=== PATIENT | female | born 1980 | race African-American/Black ===

== ENCOUNTER 2016-04-21 00:14 | Emergency (ER) | payer BC ==
[2016-04-21 00:49] VITALS: BP 121/72; PULSE 77; TEMP 97.8; BMI 26.3
--- NOTE | 2016-04-21 00:57 | PDOC ---
History of Present Illness - General History Source: Patient Exam Limitations: No Limitations - History of Present Illness Initial Comments: 04/21/16 01:51 The patient is a 36 year old female, with no significant past medical history, who presents to the emergency department with urinary frequency, dysuria, hematuria and suprapublic pain for the past 6 hours. The patient states that her urine is pink streaked. She reports that she has had urinary tract infections in the past and that her current symptoms feel similar. The patient denies fever, chills, nausea, vomiting or diarrhea. is with her in the ED. LMP: 04/10/2016 Allergies: None reported. Past Surgical History: None reported. Social History: Non smoker. Denies alcohol or drug use. <Hina Parada - Last Filed: 04/21/16 01:51> <Octaviano Guy - Last Filed: 04/21/16 02:03> - General Chief Complaint: Urinary Problem Stated Complaint: URINARY PROBLEM Time Seen by Provider: 04/21/16 00:46 Past History <Hina Parada - Last Filed: 04/21/16 01:51> - Psycho/Social/Smoking Cessation Hx Suicidal Ideation: No Smoking History: Never smoked Have you smoked in the past 12 months: No Information on smoking cessation initiated: No Hx Alcohol Use: No Drug/Substance Use Hx: No <Octaviano Guy - Last Filed: 04/21/16 02:03> - Past Medical History Allergies/Adverse Reactions: Allergies Allergy/AdvReac Type Severity Reaction Status Date / Time No Known Allergies Allergy Verified 04/21/16 00:46 Home Medications: Ambulatory Orders Nitrofurantoin Monohyd/M-Cryst [Macrobid -] 100 mg PO BID #20 capsule 04/21/16 Phenazopyridine HCl [Pyridium] 100 mg PO BID #6 tablet 04/21/16 Review of Systems - Review of Systems Able to Perform ROS?: Yes Comments:: 04/21/16 01:51 CONSTITUTIONAL: No fever, no chills, no fatigue EYES: No visual changes ENT: No ear pain, no sore throat CARDIOVASCULAR: No chest pain, no palpitations RESPIRATORY: No cough, no SOB GI: +Abdominal pain. No nausea, no vomiting, no constipation, no diarrhea GENITOURINARY: +Dysuria, urinary frequency, hematuria MUSKULOSKELETAL: No back pain, no joint pain, no myalgias SKIN: No rash NEURO: No headache <Hina Parada - Last Filed: 04/21/16 01:51> *Physical Exam - Vital Signs Last Vital Signs Temp Pulse Resp BP Pulse Ox 97.8 F 77 20 121/72 100 04/21/16 00:46 04/21/16 00:46 04/21/16 00:46 04/21/16 00:46 04/21/16 00:46 - Physical Exam Comments: 04/21/16 01:35 CONSTITUTIONAL: Well-appearing; well-nourished; in no apparent distress. HEAD: Normocephalic; atraumatic. EYES: PERRL; EOM intact. ENMT: External appears normal; normal oropharynx. NECK: Supple; non-tender; no cervical lymphadenopathy. CARD: Normal S1, S2; no murmurs, rubs, or gallops. RESP: Normal chest excursion with respiration; breath sounds clear and equal bilaterally; no wheezes, rhonchi, or rales. ABD: Mild suprapubic tenderness. Soft, non-distended; no palpable organomegaly, no palpable hernias. EXT: Normal ROM in all four extremities; non-tender to palpation; distal pulses intact. SKIN: Warm, dry, no rash. NEURO: No focal neurological deficiencies. <Hina Parada - Last Filed: 04/21/16 01:51> - Vital Signs Last Vital Signs Temp Pulse Resp BP Pulse Ox 97.8 F 77 20 121/72 100 04/21/16 00:46 04/21/16 00:46 04/21/16 00:46 04/21/16 00:46 04/21/16 00:46 <Octaviano Guy - Last Filed: 04/21/16 02:03> ED Treatment Course - ADDITIONAL ORDERS Additional order review: Laboratory Results 04/21/16 01:05 Urine Color Yellow Urine Appearance Cloudy Urine pH 5.0 Ur Specific [place] 1.027 Urine Protein 2+ H Urine Glucose (UA) Negative Urine Ketones Negative Urine Blood 3+ H Urine Nitrite Negative Urine Bilirubin Negative Urine Urobilinogen Negative Ur Leukocyte Esterase 3+ H Urine HCG, Qual Negative <Hina Parada - Last Filed: 04/21/16 01:51> Medical Decision Making - Medical Decision Making 04/21/16 02:00 Patient is a well-appearing 36-year-old female who presents with signs and symptoms of acute cystitis. Urinalysis reveals numerous RBCs and WBCs per high- power field consistent with hemorrhagic cystitis. Urine cultures been obtained. Will discharge with Macrobid and Pyridium with PMD follow-up. <Octaviano Guy - Last Filed: 04/21/16 02:03> *DC/Admit/Observation/Transfer - Attestations Scribe Attestion: 04/21/16 01:35 Documentation prepared by Hina Parada, acting as medical editor for Octaviano Guy MD. <Hina Parada - Last Filed: 04/21/16 01:51> - Attestations Physician Attestion: 04/21/16 01:59 The documentation was prepared by the scribe under my direct supervision. I have reviewed the documentation which correctly represents the findings, medical decision-making and critical action taken by me. <Octaviano Guy - Last Filed: 04/21/16 02:03> Diagnosis at time of Disposition: Hemorrhagic cystitis - Discharge Dispostion Disposition: HOME Condition at time of disposition: Stable - Referrals Referrals: [facility] [Provider Group] - Patient Instructions Printed Discharge Instructions: Acute Cystitis
[2016-04-21 01:21] LABS: URINE APPEARANCE CLOUDY; URINE BILIRUBIN NEGATIVE (NEGATIVE); URINE COLOR YELLOW; URINE GLUCOSE (UA) NEGATIVE (NEGATIVE); URINE KETONE NEGATIVE (NEGATIVE); URINE NITRITE NEGATIVE (NEGATIVE); URINE UROBILINOGEN NEGATIVE E.U./dl (0.2-1.0)
[2016-04-21 01:27] LABS: URINE BLOOD 3+ (NEGATIVE); URINE LEUK ESTERASE 3+ (NEGATIVE); URINE PROTEIN 2+ (NEGATIVE)
[2016-04-21 01:49] LABS: URINE MUCUS FEW; URINE RBC 1173 /hpf (0-3); URINE WBC 1372 /hpf (3-5)
== END 2016-04-21 02:08 | disposition home or self-care (01) ==
LOC: JER 00:14
DX: N30.81 Other cystitis with hematuria (principal)
CPT/HCPCS: 81003; 81015; 84703; 87086; 87186; 99281-25

== ENCOUNTER 2016-12-18 14:58 | Emergency (ER) | payer BC ==
[2016-12-18 15:02] VITALS: BP 123/80; PULSE 96; TEMP 98.7; BMI 25.7
--- NOTE | 2016-12-18 16:07 | PDOC ---
History of Present Illness - General Chief Complaint: Pain Stated Complaint: CHEST PAIN Time Seen by Provider: 12/18/16 15:56 History Source: Patient Exam Limitations: No Limitations - History of Present Illness Initial Comments: 12/18/16 16:02 36 yr female with c/o "lump in throat" for 3 days after swallowing. denies nvd no fever, neg abd pain. Pt states frequent heartburn after eating certain foods. 12/18/16 16:30 Occurred: reports: other (3-4 days) Severity: reports: mild Modifying Factors: improves with: None Associated Symptoms (Fall): denies symptoms Past History - Past Medical History Allergies/Adverse Reactions: Allergies Allergy/AdvReac Type Severity Reaction Status Date / Time No Known Allergies Allergy Verified 12/18/16 15:02 Home Medications: Ambulatory Orders Ranitidine HCl [Acid Mainframe Consultant] 150 mg PO BID #28 tablet 12/18/16 - Psycho/Social/Smoking Cessation Hx Suicidal Ideation: No Smoking History: Never smoked Have you smoked in the past 12 months: No Information on smoking cessation initiated: No Hx Alcohol Use: No Drug/Substance Use Hx: No Review of Systems - Review of Systems Able to Perform ROS?: Yes Is the patient limited Maltese proficient: No Constitutional: No: Symptoms Reported HEENTM: Yes: See HPI, Difficulty Swallowing *Physical Exam - Vital Signs Last Vital Signs Temp Pulse Resp BP Pulse Ox 98.7 F 96 H 18 123/80 100 12/18/16 14:59 12/18/16 14:59 12/18/16 14:59 12/18/16 14:59 12/18/16 14:59 - Physical Exam General Appearance: Yes: Nourished, Appropriately Dressed HEENT: positive: EOMI, MERY, Normal ENT Inspection, TMs Normal, Pharynx Normal Neck: positive: Supple. negative: Tender, Lymphadenopathy (R), Lymphadenopathy (L) Respiratory/Chest: positive: Lungs Clear, Normal Breath Sounds. negative: Chest Tender Cardiovascular: positive: Regular Rhythm, Regular Rate Medical Decision Making - Medical Decision Making 12/18/16 16:31 cc: painful swallowing neg nvd neg fever or chills neg abd pain will get CXR will give maalox and zantac 12/18/16 16:34 12/18/16 18:09 pt feels better after the meds. pt has no diff swallowing or speaking. CXR is WNL read by results discussed with patient and that pt needs strict follow up with ENT and GI to further evaluate pt agrees and understands the dc plan. pt stable on discharge and understands that the workup is not complete until she follows up with the specialists. 12/18/16 19:01 *DC/Admit/Observation/Transfer Diagnosis at time of Disposition: Difficulty swallowing Qualifiers: Dysphagia type: unspecified Qualified Code(s): R13.10 - Dysphagia, unspecified - Discharge Dispostion Disposition: HOME Condition at time of disposition: Good - Prescriptions Prescriptions: Ranitidine HCl [Acid Mainframe Consultant] 150 mg PO BID #28 tablet - Referrals Referrals: Donovan Romero MD [Staff Physician] - Sadi Ramirez MD [Staff Physician] - - Patient Instructions Additional Instructions: please follow with the sheep farm manager or the ENT for follow up call tomorrow to make appointment start ranitidine as directed return if any worsening symptoms
[2016-12-18] MEDS ORDERED: RANITIDINE HCL 150 MG TABLET (FP) PO ONE (16:12)
[2016-12-18] MEDS ORDERED: MAG HYDROX/AL HYDROX/SIMETH 355 ML ORAL.SUSP PO ONE (16:12)
[2016-12-18] MEDS ORDERED: MAG HYDROX/AL HYDROX/SIMETH 30 ML UNIT-DOSE CUP ONE (16:14)
[2016-12-18] MEDS ORDERED: RANITIDINE HCL 150 MG TABLET (FP) ONE (16:14)
--- NOTE | 2016-12-22 09:51 | EKG ---
Test Reason : Blood Pressure : / mmHG Vent. Rate : 087 BPM Atrial Rate : 087 BPM P-R Int : 160 ms QRS Dur : 086 ms QT Int : 368 ms P-R-T Axes : 049 062 048 degrees QTc Int : 442 ms NORMAL SINUS RHYTHM MINIMAL VOLTAGE CRITERIA FOR LVH, MAY BE NORMAL VARIANT NONSPECIFIC T WAVE ABNORMALITY NO PREVIOUS ECGS AVAILABLE Confirmed by KORY NEWMAN MD ([id number]) on 12/22/2016 9:51:08 AM Referred By: Confirmed By:KORY NEWMAN MD
== END 2016-12-18 19:02 | disposition home or self-care (01) ==
LOC: JERFT 14:58
DX: R13.10 Dysphagia, unspecified (principal)
CPT/HCPCS: 71020-TC; 84703; 93005; 93010; 99281-25

== ENCOUNTER 2017-11-10 23:14 | Emergency (ER) | payer BC ==
[2017-11-10 23:23] VITALS: BP 125/79; PULSE 84; TEMP 98.7; BMI 24.3
--- NOTE | 2017-11-10 23:48 | PDOC ---
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 She additionally notes mild constipation and generalized weakness that worsens while she is at work. She has vomited three times in the past day and notes that even drinking water makes her feel nauseated. She has not taken any medications for her symptoms. Her LMP was in the end of September, she does not use control, and she is sexually active. She had slightly increased vaginal discharge yesterday. She denies headache, neck pain, chest pain, palpitations, SOB, leg pain/swelling, or other symptoms. <Kandy Carson - Last Filed: 11/11/17 02:17> - General Chief Complaint: Nausea/Vomiting Stated Complaint: VOMITING Time Seen by Provider: 11/10/17 23:30 Past History <Rebecca Lockwood - Last Filed: 11/11/17 02:06> - Suicide/Smoking/Psychosocial Hx Smoking History: Never smoked Have you smoked in the past 12 months: No Hx Alcohol Use: No Drug/Substance Use Hx: No <Kandy Carson - Last Filed: 11/11/17 02:17> - Past Medical History Allergies/Adverse Reactions: Allergies Allergy/AdvReac Type Severity Reaction Status Date / Time Penicillins Allergy Severe Hives Verified 11/11/17 00:54 Home Medications: Ambulatory Orders Metoclopramide HCl [Reglan] 10 mg PO TID #14 tablet 11/11/17 Review of Systems - Review of Systems Able to Perform ROS?: Yes Constitutional: Yes: Fever (subjective), Malaise, Weakness. No: Chills, Unexplained wgt Loss HEENTM: No: Nose Congestion, Throat Pain Respiratory: No: Cough, Shortness of Breath Cardiac (ROS): No: Chest Pain, Palpitations ABD/GI: Yes: Constipated, Nausea, Vomiting, Other (lower abdominal pain). No: Diarrhea : No: Burning, Dysuria Musculoskeletal: No: Back Pain, Neck Pain Integumentary: No: Bruising, Rash Neurological: No: Headache, Numbness, Tingling, Weakness, Dizziness Endocrine: No: Unexplained Weight Gain, Unexplained Weight Loss <Kandy Carson - Last Filed: 11/11/17 02:17> *Physical Exam - Vital Signs Last Vital Signs Temp Pulse Resp BP Pulse Ox 98.7 F 84 20 125/79 99 11/10/17 23:19 11/10/17 23:19 11/10/17 23:19 11/10/17 23:19 11/10/17 23:19 <LockwoodRebecca - Last Filed: 11/11/17 02:06> - Vital Signs Last Vital Signs Temp Pulse Resp BP Pulse Ox 98.7 F 84 20 125/79 99 11/10/17 23:19 11/10/17 23:19 11/10/17 23:19 11/10/17 23:19 11/10/17 23:19 - Physical Exam General Appearance: Yes: Nourished, Appropriately Dressed, Other (slightly uncomfortable but nontoxic appearing adult female answering questions appropriately and accompanied at bedside by her significant other). No: Apparent Distress HEENT: positive: EOMI, MERY, Normal Voice, Hearing Grossly Normal. negative: Scleral Icterus (R), Scleral Icterus (L), Nasal Congestion Neck: positive: Trachea midline, Supple. negative: Tender, Rigid Respiratory/Chest: positive: Lungs Clear, Normal Breath Sounds. negative: Respiratory Distress, Crackles, Rhonchi, Stridor, Wheezing Cardiovascular: positive: Regular Rhythm, Regular Rate, S1, S2. negative: Edema , JVD, Murmur Gastrointestinal/Abdominal: positive: Normal Bowel Sounds, Tender (mild suprapubic), Soft. negative: Organomegaly, Pulsatile Mass, Guarding Musculoskeletal: positive: Normal Inspection. negative: Decreased Range of Motion, Vertebral Tenderness Extremity: positive: Normal Capillary Refill, Normal Inspection, Normal Range of Motion. negative: Tender, Cyanosis Integumentary: positive: Normal Color, Dry, Warm. 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 director II-XII NML intact (grossly), Fully Oriented, Alert, Normal Mood/Affect, Normal Response, Motor Strength 5/5 <Kandy Carson - Last Filed: 11/11/17 02:17> ED Treatment Course - LABORATORY CBC & Chemistry Diagram: 11/11/17 01:00 11/11/17 01:00 - ADDITIONAL ORDERS Additional order review: Laboratory Results 11/11/17 11/11/17 11/11/17 01:00 01:00 01:00 Sodium Potassium Chloride Carbon Dioxide Anion Gap BUN Creatinine Creat Clearance w eGFR Random Glucose Calcium Phosphorus Magnesium Total Bilirubin AST ALT Alkaline Phosphatase Total Protein Albumin Lipase 114 TSH 1.25 Beta HCG, Quant 362210.3 Urine Color Ltyellow Urine Appearance Slcloudy Urine pH 8.0 D Ur Specific [place] 1.014 Urine Protein Negative Urine Glucose (UA) Negative Urine Ketones Negative Urine Blood Negative Urine Nitrite Negative Urine Bilirubin Negative Urine Urobilinogen Negative Ur Leukocyte Esterase Negative 11/11/17 01:00 Sodium 134 L Potassium 4.5 Chloride 101 Carbon Dioxide 25 Anion Gap 8 BUN 7 Creatinine 0.7 Creat Clearance w eGFR > 60 Random Glucose 80 Calcium 9.1 Phosphorus 3.8 Magnesium 1.9 Total Bilirubin 0.3 AST 25 ALT 26 Alkaline Phosphatase 59 Total Protein 7.3 Albumin 3.4 Lipase TSH Beta HCG, Quant Urine Color Urine Appearance Urine pH Ur Specific [place] Urine Protein Urine Glucose (UA) Urine Ketones Urine Blood Urine Nitrite Urine Bilirubin Urine Urobilinogen Ur Leukocyte Esterase 11/11/17 01:00 RBC 4.38 MCV 81.4 MCHC 33.7 RDW 15.7 H MPV 9.9 Neutrophils % 68.4 Lymphocytes % 22.0 Monocytes % 7.2 Eosinophils % 1.2 Basophils % 1.2 - Medications Given in the ED: ED Medications Discontinued Medications Generic Name Dose Route Start Last Admin Trade Name Mikhailq PRN Reason Stop Dose Admin Acetaminophen 1,000 mg 11/11/17 00:05 11/11/17 00:15 Ofirmev Injection - IVPB 11/11/17 00:06 1,000 mg ONCE ONE Administration Sodium Chloride 1,000 ml 11/11/17 00:05 11/11/17 00:15 Normal Saline - IV 11/11/17 00:06 1,000 ml ONCE ONE Administration <Rebecca Lockwood - Last Filed: 11/11/17 02:06> - LABORATORY CBC & Chemistry Diagram: 11/11/17 01:00 11/11/17 01:00 <Kandy Carson - Last Filed: 11/11/17 02:17> Medical Decision Making - Medical Decision Making Female Pt p/w suprapubic/pelvic pain. Initial Vital Signs Temp Pulse Resp BP Pulse Ox 98.7 F 84 20 125/79 99 11/10/17 23:19 11/10/17 23:19 11/10/17 23:19 11/10/17 23:19 11/10/17 23:19 Exam: As noted in Physical Exam section. DDX IBNLT: UTI/pyelonephritis, renal colic, ovarian torsion, ovarian cyst, ectopic , PID, TOA, cervicitis, endometritis, malignancy, hernia, cholecystitis, pancreatitis, gastritis, PUD, appendicitis, diverticulitis wwo abscess or perforation, colitis, SBO, bowel ischemia, bowel perforation, constipation, musculoskeletal, primary dysmenorrhea, endometriosis, fibroids, etc. W/U ordered: hCG CBCD CMP Mg Phos Coags T&S UA UCx GC/Chlam/trich NAAT ( cervical swab) Wet prep GC Cx TVUS TX ordered: IVF, Ofirmev If UA has WBC and RBC but there is high clinical suspicion for appendicitis, get imaging anyway. Appendicitis can irritate the ureter(s) and cause elevated WBC and RBC in UA. Labs: Reassessment: Repeat VS: DISCHARGE The Pt has gotten significant relief of symptoms with ED medications. She does not have workup findings concerning for life-threatening arrhythmia or other dangerous cause. She is appropriate for discharge with close outpatient follow up. She and her parents are comfortable with this plan and will follow up with her PCP in 1-3 days. Specific return precautions are discussed with Pt and family and she will come back to the ER if necessary. 11/11/17 02:12 <Kandy Carson - Last Filed: 11/11/17 02:17> *DC/Admit/Observation/Transfer - Discharge Dispostion Decision to Admit order: No <Rebecca Lockwood - Last Filed: 11/11/17 02:06> - Discharge Dispostion Decision to Admit order: No <Kandy Carson - Last Filed: 11/11/17 02:17> Diagnosis at time of Disposition: Morning sickness Qualifiers: Weeks of gestation: unspecified Qualified Code(s): Z34.90 - Encounter for supervision of normal , unspecified, unspecified trimester - Discharge Dispostion Disposition: HOME Condition at time of disposition: Stable - Prescriptions Prescriptions: Metoclopramide HCl [Reglan] 10 mg PO TID #14 tablet - Referrals Referrals: Esthela Woo MD [Staff Physician] - - Patient Instructions Printed Discharge Instructions: DI for Hyperemesis Gravidarum Additional Instructions: You were seen in the ER for pelvic cramping and generalized ill feeling. We did an exam, laboratory work on your blood and urine, and we did not find any signs of an emergency, but your hormone level was high and we believe you are . After our assessment, we believe you are not having a medical emergency and you are safe to go home. Please take [id number] Tylenol for any pain. assembly supervisor your prescription for Reglan (an anti-nausea medication) and take this if you need it, as instructed on the medication label. Follow up with your regular doctor(s) in the next 1-3 days. You should also follow up with an [facility] doctor and start taking vitamins. We are giving you referral information for our [facility] doctor. Call their clinic [facility], tell them you were seen in the ER, and tell them you need an appointment. Please come back to the ER at any time, 24 hours a day, for any new or worsening symptoms, like worsening pelvic pain, discharge, high fever, or other symptoms. If you are having severe or life threatening symptoms, or symptoms that make it unsafe to drive or have someone drive you, please call 911.
--- NOTE | 2017-11-10 23:48 | PDOC ---
Attending Attestation - HPI HPI: 11/11/17 00:28 The patient is a 37 year old female , with no significant PMH, who presents to the emergency department with 5 days of lower abdominal discomfort and 3 episodes of non bloody non bilious emesis earlier today. The patient also endorses lightheadedness, subjective fever and mild constipation. The patient states her LMP was in the end of September and reports she does not use control and is sexually active. She reports noting slight vaginal discharge yesterday. The patient denies chest pain, shortness of breath, headache and dizziness. Denies chills, diarrhea, melena or hematochezia. Denies dysuria, frequency, urgency and hematuria. Allergies: NKA - Physicial Exam PE: 11/11/17 00:29 GENERAL: Awake, alert, and fully oriented, in no acute distress HEAD: No signs of trauma EYES: PERRLA, EOMI, sclera anicteric, conjunctiva clear ENT: Auricles normal inspection, hearing grossly normal, nares patent, oropharynx clear without exudates. Moist mucosa NECK: Normal ROM, supple, no lymphadenopathy, JVD, or masses LUNGS: Breath sounds equal, clear to auscultation bilaterally. No wheezes, and no crackles HEART: Regular rate and rhythm, normal S1 and S2, no murmurs, rubs or gallops ABDOMEN: (+) Mild suprapubic tenderness. No rebound or guarding. Soft, normoactive bowel sounds. No masses EXTREMITIES: Normal range of motion, no edema. No clubbing or cyanosis. No cords, erythema, or tenderness NEUROLOGICAL: Cranial nerves II through XII grossly intact. Normal speech, normal gait SKIN: Warm, Dry, normal turgor, no rashes or lesions noted. <Darryl Martin - Last Filed: 11/11/17 00:28> - Resident Resident Name: Kandy Carson - ED Attending Attestation I have performed the following: I have examined & evaluated the patient, The case was reviewed & discussed with the resident, I agree w/resident's findings & plan - Medical Decision Making 11/11/17 02:05 Pt is and she is coming with morning sickness. She will be asked to follow with PROGRAM PRODUCTION SPECIALIST armed custom protection officer 11/11/17 02:10 Pt is feeling better with hydration <Rebecca Lockwood - Last Filed: 11/11/17 02:10> Attestations - Attestations 11/11/17 00:30 Documentation prepared by Darryl Martin, acting as medical technologist microbiology for Rebecca Lockwood MD. <Darryl Martin - Last Filed: 11/11/17 00:28>
[2017-11-11] MEDS ORDERED: SODIUM CHLORIDE 0.9% 500 ML INFUS.BAG IV ONE (00:05)
[2017-11-11] MEDS ORDERED: ACETAMINOPHEN 1000 MG/100 ML VIAL (NON FORMULARY) IVPB ONE (00:05)
[2017-11-11] MEDS ORDERED: ACETAMINOPHEN INJECTION 100 ML IVPB ONE (00:30)
[2017-11-11 01:13] LABS: BASO % 1.2 % (0-2.0); EOS % 1.2 % (0-4.5); HEMATOCRIT 35.6 % (32.4-45.2); MCH 27.4 pg (25.7-33.7); MCHC 33.7 g/dl (32.0-36.0); MEAN CELL VOLUME 81.4 fl (80-96); MEAN PLT VOLUME 9.9 fl (7.5-11.1); MONO % 7.2 % (3.8-10.2); NEUT % 68.4 % (42.8-82.8); PLATELET COUNT 261 K/MM3 (134-434); RBC 4.38 M/mm3 (3.60-5.2); RDW 15.7 % (11.6-15.6); WHITE BLOOD COUNT 8.6 K/mm3 (4.0-10.0)
[2017-11-11 01:14] LABS: URINE APPEARANCE SLCLOUDY; URINE BILIRUBIN NEGATIVE (<2.0 mg/dL); URINE COLOR LTYELLOW; URINE GLUCOSE (UA) NEGATIVE (NEGATIVE); URINE KETONE NEGATIVE (NEGATIVE); URINE LEUK ESTERASE NEGATIVE (NEGATIVE); URINE NITRITE NEGATIVE (NEGATIVE); URINE PROTEIN NEGATIVE (NEGATIVE); URINE UROBILINOGEN NEGATIVE mg/dL (0.2-1.0)
[2017-11-11 01:42] LABS: ALBUMIN 3.4 g/dl (3.4-5.0); ALK PHOS 59 U/L (45-117); ANION GAP 8 (8-16); BILIRUBIN,TOTAL 0.3 mg/dL (0.2-1.0); BLOOD UREA NITROGEN 7 mg/dL (7-18); CALCIUM 9.1 mg/dL (8.5-10.1); CHLORIDE 101 mmol/L (98-107); CO2 25 mmol/L (21-32); CREATININE 0.7 mg/dL (0.55-1.02); GLUCOSE,RANDOM 80 mg/dL (74-106); PHOSPHOROUS 3.8 mg/dL (2.5-4.9); SGPT/ALT 26 U/L (12-78); SODIUM 134 mmol/L (136-145); TOT PROT 7.3 g/dl (6.4-8.2)
[2017-11-11 01:46] LABS: MAGNESIUM 1.9 mg/dL (1.8-2.4); POTASSIUM 4.5 mmol/L (3.5-5.1); SGOT/AST 25 U/L (15-37)
[2017-11-11] MEDS ORDERED: METOCLOPRAMIDE HCL 10 MG TABLET (FP) PO ONE (02:16)
[2017-11-11] MEDS ORDERED: METOCLOPRAMIDE HCL INJECTION 10 MG/2 ML VIAL ONE (02:26)
== END 2017-11-11 02:47 | disposition home or self-care (01) ==
LOC: JER 23:14
PROC: 3E033NZ Introduction of Analgesics, Hypnotics, Sedatives into Peripheral Vein, Percutaneous Approach (ICD-10-PCS; principal; 2017-11-10)
PROC: 3E0337Z Introduction of Electrolytic and Water Balance Substance into Peripheral Vein, Percutaneous Approach (ICD-10-PCS; 2017-11-10)
DX: O21.9 Vomiting of pregnancy, unspecified (principal); Z3A.00 Weeks of gestation of pregnancy not specified
CPT/HCPCS: 36415; 80053; 81003; 83690; 83735; 84100; 84443; 84702; 85025; 87086; 99283-25; J0131

== ENCOUNTER 2018-01-20 00:06 | Emergency (ER) | payer BC ==
[2018-01-20 00:13] VITALS: BP 144/113; PULSE 130; TEMP 98; BMI 25.0
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
[2018-01-20] MEDS ORDERED: ACETAMINOPHEN 325 MG TABLET (FP) PO ONE (00:33)
[2018-01-20] MEDS ORDERED: ACETAMINOPHEN 325 MG TABLET (FP) ONE (00:40)
[2018-01-20 01:23] LABS: URINE APPEARANCE CLOUDY; URINE BILIRUBIN NEGATIVE (<2.0 mg/dL); URINE COLOR YELLOW; URINE GLUCOSE (UA) NEGATIVE (NEGATIVE); URINE KETONE NEGATIVE (NEGATIVE); URINE LEUK ESTERASE NEGATIVE (NEGATIVE); URINE NITRITE NEGATIVE (NEGATIVE); URINE PROTEIN 1+ (NEGATIVE); URINE UROBILINOGEN NEGATIVE mg/dL (0.2-1.0)
[2018-01-20 01:31] LABS: EPI CELLS FEW /HPF (FEW); URINE HYALINE CAST 1 /lpf; URINE MUCUS RARE
[2018-01-20] MEDS ORDERED: IBUPROFEN 600 MG TABLET (FP) PO ONE ×2 (03:22→03:26)
[2018-01-20] MEDS ORDERED: METHOCARBAMOL 500 MG TABLET PO ONE (03:23)
[2018-01-20] MEDS ORDERED: METHOCARBAMOL 500 MG TABLET ONE (03:26)
== END 2018-01-20 03:48 | disposition home or self-care (01) ==
LOC: JER 00:06
DX: R07.9 Chest pain, unspecified (principal); S00.83XA Contusion of other part of head, initial encounter; S40.012A Contusion of left shoulder, initial encounter; S20.219A Contusion of unspecified front wall of thorax, initial encounter; S40.022A Contusion of left upper arm, initial encounter; Y04.2XXA Assault by strike against or bumped into by another person, initial encounter; Y93.89 Activity, other specified; Y92.038 Other place in apartment as the place of occurrence of the external cause; Y99.8 Other external cause status; Y07.01 Husband, perpetrator of maltreatment and neglect
CPT/HCPCS: 70450-TC; 70486-TC; 71045-TC-FY; 72125-TC; 73030-TC-LT-FY; 73090-TC-LT-FY; 73130-TC-RT-FY; 81003; 81015; 84703; 99284-25

== ENCOUNTER 2018-06-19 17:23 | Emergency (ER) | payer BC ==
[2018-06-19 17:36] VITALS: BP 126/83; PULSE 83; TEMP 98.3; BMI 26.6
--- NOTE | 2018-06-19 17:36 | PDOC ---
Rapid Medical Evaluation Time Seen by Provider: 06/19/18 17:29 Medical Evaluation: Allergies Allergy/AdvReac Type Severity Reaction Status Date / Time Penicillins Allergy Severe Hives Verified 01/20/18 00:12 06/19/18 17:31 I have performed a brief in-person evaluation of this patient. The patient presents with a chief complaint of: "I have a cold for 2 weeks." Pertinent physical exam findings: OP erythematous. No lesions or exudates present. Lungs CTAB I have ordered the following: nothing The patient will proceed to the ED for further evaluation. Discharge Disposition - Diagnosis URI (upper respiratory infection) - Referrals - Patient Instructions - Post Discharge Activity
[2018-06-19] MEDS ORDERED: DEXAMETHASONE LIQUID 0.5 MG/5 ML 240 ML BULK BOTTLE PO ONE (18:19)
[2018-06-19] MEDS ORDERED: ALBUTEROL SO4 2.5/IPRATROPIUM 0.5 INH SOL 3 ML VIAL.NEB. NEB ONE ×2 (18:19→18:30)
[2018-06-19] MEDS ORDERED: guaiFENesin/CODEINE 10 ML UNIT-DOSE CUPS PO ONE (18:19)
--- NOTE | 2018-06-19 18:19 | PDOC ---
History of Present Illness - General Chief Complaint: Cold Symptoms Stated Complaint: COLD SYMPTOMS Time Seen by Provider: 06/19/18 17:29 History Source: Patient Exam Limitations: No Limitations Past History - Travel Traveled outside of the country in the last 30 days: No Close contact w/someone who was outside of country & ill: No - Past Medical History Allergies/Adverse Reactions: Allergies Allergy/AdvReac Type Severity Reaction Status Date / Time Penicillins Allergy Severe Hives Verified 06/19/18 17:36 Home Medications: Ambulatory Orders Metoclopramide HCl [Reglan] 10 mg PO TID #14 tablet 11/11/17 Methocarbamol [Robaxin] 100 mg IJ PRN #14 ml 01/20/18 Albuterol Sulfate Inhaler - [Ventolin HFA Inhaler -] 1 - 2 inh PO Q4H #1 inhaler 06/19/18 Guaifenesin AC [Robitussin AC] 10 ml PO HS #100 ud MDD 1 06/19/18 predniSONE [Deltasone -] 40 mg PO DAILY #8 tablet 06/19/18 COPD: No CHF: No - Suicide/Smoking/Psychosocial Hx Smoking History: Never smoked Have you smoked in the past 12 months: No Hx Alcohol Use: No Drug/Substance Use Hx: No Substance Use Type: None Review of Systems - Review of Systems Able to Perform ROS?: Yes Comments:: 06/19/18 18:18 CONSTITUTIONAL: Absent: fever, chills, diaphoresis, generalized weakness, malaise, loss of appetite HEENT: Absent: rhinorrhea, nasal congestion, throat pain, throat swelling, difficulty swallowing, mouth swelling, ear pain, eye pain, visual Changes CARDIOVASCULAR: Absent: chest pain, loss of consciousness, palpitations, irregular heart rate, peripheral edema RESPIRATORY: Present: cough Absent: shortness of breath, dyspnea with exertion, orthopnea, wheezing, stridor, hemoptysis GASTROINTESTINAL: Absent: abdominal pain, abdominal distension, nausea, vomiting, diarrhea, constipation, melena, hematochezia GENITOURINARY: Absent: dysuria, frequency, urgency, hesitancy, hematuria, flank pain, genital pain MUSCULOSKELETAL: Absent: myalgia, arthralgia, joint swelling SKIN: Absent: rash, itching, pallor HEMATOLOGIC/IMMUNOLOGIC: Absent: easy bleeding, easy bruising, lymphadenopathy, frequent infections ENDOCRINE: Absent: unexplained weight gain, unexplained weight loss, heat intolerance, cold intolerance NEUROLOGIC: Absent: headache, focal weakness or paresthesias, dizziness, unsteady gait, seizure, mental status changes, bladder or bowel incontinence PSYCHIATRIC: Absent: anxiety, depression, suicidal or homicidal ideation, hallucinations. Is the patient limited Telugu proficient: No *Physical Exam - Vital Signs Last Vital Signs Temp Pulse Resp BP Pulse Ox 98.3 F 83 18 126/83 100 06/19/18 17:31 06/19/18 17:31 06/19/18 17:31 06/19/18 17:31 06/19/18 17:31 - Physical Exam Comments: 06/19/18 18:18 GENERAL: Well developed, well nourished. Awake and alert. No acute distress. HEENT: Normocephalic, atraumatic. PERRLA, EOMI. No conjunctival pallor. Sclera are non- icteric. Moist mucous membranes. Oropharynx is clear. NECK: Supple. Full ROM. No JVD. Carotid pulses 2+ and symmetric, without bruits. No thyromegaly. No lymphadenopathy. CARDIOVASCULAR: Regular rate and rhythm. No murmurs, rubs, or gallops. Distal pulses are 2+ and symmetric. PULMONARY: No evidence of respiratory distress. Lungs clear to auscultation bilaterally. No wheezing, rales or rhonchi. ABDOMINAL: Soft. Non-tender. Non-distended. No rebound or guarding. No organomegaly. Normoactive bowel sounds. MUSCULOSKELETAL Normal range of motion at all joints. No bony deformities or tenderness. No CVA tenderness. EXTREMITIES: No cyanosis. No clubbing. No edema. No calf tenderness. SKIN: Warm and dry. Normal capillary refill. No rashes. No jaundice. NEUROLOGICAL: Alert, awake, appropriate. Cranial nerves 2-12 intact. No deficits to light touch and temperature in face, upper extremities and lower extremities. No motor deficits in the in face, upper extremities and lower extremities. Normoreflexic in the upper and lower extremities. Normal speech. Toes are down- going bilaterally. Gait is normal without ataxia. PSYCHIATRIC: Cooperative. Good eye contact. Appropriate mood and affect. Moderate Sedation - Procedure Monitoring Vital Signs: Procedure Monitoring Vital Signs Temperature 98.3 F 06/19/18 17:31 Pulse Rate 83 06/19/18 17:31 Respiratory Rate 18 06/19/18 17:31 Blood Pressure 126/83 06/19/18 17:31 O2 Sat by Pulse Oximetry (%) 100 06/19/18 17:31 Medical Decision Making - Medical Decision Making 06/19/18 18:20 Patient is a 38-year-old female with no past medical history who presents to the emergency department today for cough, shortness of breath. Patient states that she had been sick approximately 3 weeks ago and she is left with this cough. She states that every time she takes a deep breath she coughs. Denies fevers, chills, difficulty breathing, chest pain, nausea, vomiting and diarrhea. A: Bronchitis P: Chest x-ray ordered to rule out pneumonia. Wet read as negative for acute infection. Duo nebs, steroids given in the emergency department with relief of symptoms. We will discharge home with symptomatic relief. I discussed the physical exam findings, ancillary test results and final diagnoses with the patient. I answered all of the patient's questions. The patient was satisfied with the care received and felt comfortable with the discharge plan and treatment plan. The Patient agrees to follow up with the primary care physician/specialist within 24-72 hours. Return precautions were given. *DC/Admit/Observation/Transfer Diagnosis at time of Disposition: Bronchitis - Discharge Dispostion Disposition: HOME Condition at time of disposition: Stable Decision to Admit order: No - Prescriptions Prescriptions: Albuterol Sulfate Inhaler - [Ventolin HFA Inhaler -] 1 - 2 inh PO Q4H #1 inhaler Guaifenesin AC [Robitussin AC] 10 ml PO HS #100 ud MDD 1 predniSONE [Deltasone -] 40 mg PO DAILY #8 tablet - Referrals Referrals: Ever Marcial MD [Staff Physician] - - Patient Instructions Printed Discharge Instructions: DI for Acute Bronchitis Additional Instructions: You have bronchitis; your chest x-ray was negative for pneumonia Please use the inhaler every 4 hours for the next week to help with your cough. Continue taking the prednisone as directed. You may take the Robitussin with codeine at night before bed to help with your cough. Do not drive or drink alcohol after taking this medication as it may make you sleepy. Please follow up with your primary care doctor in 1 week if your symptoms are not improving. Return to the emergency department if you have fevers, chills, worsening cough, chest pain, worsening shortness of breath or if you have any changes in your symptoms. - Post Discharge Activity Forms/Work/School Notes: Back to Work
[2018-06-19] MEDS ORDERED: DEXAMETHASONE SOD PHOSPHATE 10 MG/1 ML VIAL ONE (18:30)
[2018-06-19] MEDS ORDERED: guaiFENesin/D-METHORPHAN HB 10 ML UNIT-DOSE CUPS ONE (18:30)
== END 2018-06-19 19:37 | disposition home or self-care (01) ==
LOC: JERFT 17:23
PROC: 3E0F7GC Introduction of Other Therapeutic Substance into Respiratory Tract, Via Natural or Artificial Opening (ICD-10-PCS; principal; 2018-06-19)
DX: J40 Bronchitis, not specified as acute or chronic (principal)
CPT/HCPCS: 71046-TC-FY; 99281-25

== ENCOUNTER 2018-11-20 18:56 | Emergency (ER) | payer BC ==
--- NOTE | 2018-11-20 19:04 | PDOC ---
Rapid Medical Evaluation Time Seen by Provider: 11/20/18 19:02 Medical Evaluation: Allergies Allergy/AdvReac Type Severity Reaction Status Date / Time Penicillins Allergy Severe Hives Verified 11/20/18 19:02 11/20/18 19:03 HPI: + with vomiting since yesterday PE: CBC, CMP, B Quant ORDERS: Reglan Discharge Disposition - Diagnosis Hyperemesis arising during - Referrals - Patient Instructions - Post Discharge Activity
[2018-11-20] MEDS ORDERED: METOCLOPRAMIDE HCL INJECTION 10 MG/2 ML VIAL IVPUSH ONE (19:05)
[2018-11-20] MEDS ORDERED: FAMOTIDINE 20 MG/50 ML IVPB 20 MG/50 ML MG IVPB ONE ×2 (19:05→22:34)
[2018-11-20 19:08] VITALS: BP 116/67; PULSE 90; TEMP 98.5; BMI 28.1
--- NOTE | 2018-11-20 20:36 | PDOC ---
*Physical Exam - Vital Signs Last Vital Signs Temp Pulse Resp BP Pulse Ox 98.5 F 90 18 116/67 100 11/20/18 19:03 11/20/18 19:03 11/20/18 19:03 11/20/18 19:03 11/20/18 19:03 Medical Decision Making - Medical Decision Making 11/20/18 20:36 Patient seen by the advanced practice provider under my direct supervision. Ancillary testing reviewed as necessary. I agree with plan as outlined by the advanced practice provider. *DC/Admit/Observation/Transfer Diagnosis at time of Disposition: Hyperemesis arising during - Referrals - Patient Instructions - Post Discharge Activity
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
[2018-11-20] MEDS ORDERED: SODIUM CHLORIDE 0.9% 500 ML INFUS.BAG IV ONE (20:51)
[2018-11-20] MEDS ORDERED: METOCLOPRAMIDE HCL INJECTION 10 MG/2 ML VIAL ONE (22:34)
[2018-11-20 23:02] LABS: BASO % 0.4 % (0-2.0); EOS % 1.7 % (0-4.5); HEMATOCRIT 38.2 % (32.4-45.2); HEMOGLOBIN 12.5 GM/dL (10.7-15.3); LYMPH % 33.3 % (8-40); MCH 28.2 pg (25.7-33.7); MCHC 32.8 g/dl (32.0-36.0); MEAN CELL VOLUME 85.9 fl (80-96); MEAN PLT VOLUME 10.2 fl (7.5-11.1); MONO % 7.4 % (3.8-10.2); NEUT % 57.2 % (42.8-82.8); PLATELET COUNT 258 K/MM3 (134-434); RBC 4.45 M/mm3 (3.60-5.2); RDW 14.2 % (11.6-15.6); WHITE BLOOD COUNT 8.3 K/mm3 (4.0-10.0)
[2018-11-20 23:34] LABS: ALBUMIN 3.4 g/dl (3.4-5.0); BILIRUBIN,TOTAL 0.3 mg/dL (0.2-1); BLOOD UREA NITROGEN 9.6 mg/dL (7-18); CALCIUM 8.8 mg/dL (8.5-10.1); CREATININE 0.9 mg/dL (0.55-1.3); TOT PROT 7.2 g/dl (6.4-8.2)
== END 2018-11-20 23:58 | disposition home or self-care (01) ==
LOC: JER 18:56
PROC: 3E033GC Introduction of Other Therapeutic Substance into Peripheral Vein, Percutaneous Approach (ICD-10-PCS; principal; 2018-11-20)
PROC: 3E0337Z Introduction of Electrolytic and Water Balance Substance into Peripheral Vein, Percutaneous Approach (ICD-10-PCS; 2018-11-20)
DX: O21.0 Mild hyperemesis gravidarum (principal); Z3A.00 Weeks of gestation of pregnancy not specified; Z88.0 Allergy status to penicillin
CPT/HCPCS: 36415; 80053; 84702; 85025; 99282-25

== ENCOUNTER 2021-11-08 21:30 | Emergency (ER) | payer BC ==
[2021-11-08] MEDS ORDERED: TETRACAINE 0.5% HCL 0.6ML DROPPER.BOTTLE OS ONE (21:46)
[2021-11-08] MEDS ORDERED: DIPHTH,PERTUSS(ACELL),TET 0.5 ML DISP.SYRIN IM ONE ×2 (21:46→22:33)
[2021-11-08 21:47] VITALS: BMI 27.3
[2021-11-08] MEDS ORDERED: TETRACAINE 0.5% OPHTH SOLN 2 ML BOTTLE ONE (22:32)
[2021-11-08] MEDS ORDERED: FLUORESCEIN NA 1 EA STRIP ONE (22:32)
[2021-11-09] MEDS ORDERED: ACETAMINOPHEN 325 MG TABLET (FP) PO ONE (00:41)
[2021-11-09] MEDS ORDERED: ACETAMINOPHEN 325 MG TABLET (FP) ONE (00:44)
[2021-11-09 01:15] VITALS: RESP 18
[2021-11-09 05:24] VITALS: BP 133/83; PULSE 76; TEMP 98.1
== END 2021-11-09 05:25 | disposition short-term general hospital (02) ==
LOC: JER 21:30
DX: S01.112A Laceration without foreign body of left eyelid and periocular area, initial encounter (principal); S05.8X2A Other injuries of left eye and orbit, initial encounter; W22.8XXA Striking against or struck by other objects, initial encounter
CPT/HCPCS: 70480-TC; 99284-25; C9803-CS; U0003; U0005

== ENCOUNTER 2024-04-19 12:10 | Emergency (ER) | payer BC ==
[2024-04-19 12:39] VITALS: BP 140/92; PULSE 102; RESP 18; TEMP 99.6; BMI 29.7
== END 2024-04-19 13:30 | disposition home or self-care (01) ==
LOC: JER 12:10
DX: R05.9 Cough, unspecified (principal); J10.1 Influenza due to other identified influenza virus with other respiratory manifestations; M79.10 Myalgia, unspecified site; Z20.822 Contact with and (suspected) exposure to COVID-19
CPT/HCPCS: 0241U-QW; 93005; 93010; 99283-25